=== PATIENT | female | born 1980 | race Caucasian/White ===

== ENCOUNTER → 2016-11-12 | Day surgery (SDC) | payer OTHER ==
[~2016-11-12] VITALS: Ht 152.4 cm; Wt 97.5 kg
[2016-11-12 09:41] LABS: CREATININE 0.9 mg/dL (0.5-1.0); POTASSIUM 3.6 mmol/L (3.5-5.1)
== END | disposition home or self-care (01) ==
LOC: FAS 10:00
PROVIDERS: Anesthesiology
DX: K63.5 Polyp of colon (principal); K44.9 Diaphragmatic hernia without obstruction or gangrene; K64.8 Other hemorrhoids; K21.0 Gastro-esophageal reflux disease with esophagitis; F17.210 Nicotine dependence, cigarettes, uncomplicated; I10 Essential (primary) hypertension; Z79.899 Other long term (current) drug therapy; Z90.49 Acquired absence of other specified parts of digestive tract; Z98.890 Other specified postprocedural states
CPT/HCPCS: 36415; 80048; 84703; J2704